=== PATIENT | female | born 1970 | race Caucasian/White ===

== ENCOUNTER 2017-08-12 08:09 | Outpatient (CLI) | payer BC | END 2017-08-12 08:10 | disposition home or self-care (01) | LOC: BICMAMMO 08:09 | PROVIDERS: ATTEND Family Medicine | DX: Z12.31 Encounter for screening mammogram for malignant neoplasm of breast (principal); Z80.3 Family history of malignant neoplasm of breast | CPT/HCPCS: 77063; 77067 ==

== ENCOUNTER 2018-08-14 08:41 | Outpatient (CLI) | payer BC ==
--- NOTE | 2018-08-14 10:17 | MMO ---
Bilateral MAMMO Bilat Screen [facility]. CLINICAL HISTORY: Patient is 48 years old and is seen for screening. The patient has no personal history of cancer. VIEWS: The views performed were: bilateral craniocaudal with tomosynthesis and bilateral mediolateral oblique with tomosynthesis. FILMS COMPARED: The present examination has been compared to prior imaging studies performed at [facility] on 01/20/2014, 05/04/2015, 05/04/2016 and 08/12/2017. MAMMOGRAM FINDINGS: The breasts are almost entirely fat. There are no suspicious masses, suspicious calcifications, or new areas of architectural distortion. IMPRESSION: THERE IS NO MAMMOGRAPHIC EVIDENCE OF MALIGNANCY. A ROUTINE FOLLOW-UP MAMMOGRAM IN 1 YEAR IS RECOMMENDED. THE RESULTS OF THIS EXAM WERE SENT TO THE PATIENT. ACR BI-RADS Category 1 - Negative MAMMOGRAPHY NOTE: 1. A negative mammogram report should not delay a biopsy if a dominant of clinically suspicious mass is present. 2. Approximately 10% to 15% of breast cancers are not detected by mammography. 3. Adenosis and dense breasts may obscure an underlying neoplasm.
== END 2018-08-14 08:42 | disposition home or self-care (01) ==
LOC: BICMAMMO 08:41
PROVIDERS: ATTEND Family Medicine
DX: Z12.31 Encounter for screening mammogram for malignant neoplasm of breast (principal)
CPT/HCPCS: 77063; 77067

== ENCOUNTER 2018-09-08 09:27 | Outpatient (CLI) | payer BC ==
--- NOTE | 2018-09-08 11:49 | RAD ---
Esophagram HISTORY: Dysphagia. Reflux. FINDINGS: There is a lap band at the GE junction in appropriate position. Barium liquid traversed the esophagus and GE junction without significant holdup. No focal mass is ap parent. With patient supine, contrast was seen to extend from the stomach into the mid and distal esophagus. Normal primary and secondary peristalsis. No evidence of obstruction. Fluoroscopy time 0.8. IMPRESSION: Small amount of gastroesophageal reflux. Bariatric lap band in place. No evidence of obstruction.
== END 2018-09-08 09:28 | disposition home or self-care (01) ==
LOC: RAD 09:27
PROVIDERS: ATTEND Surgery
DX: K21.9 Gastro-esophageal reflux disease without esophagitis (principal)
CPT/HCPCS: 74220

== ENCOUNTER 2018-11-28 07:08 | Day surgery (SDC) | payer BC ==
[2018-11-27 11:09] VITALS: BMI 51.7
--- NOTE | 2018-11-28 10:05 | OP ---
DATE OF PROCEDURE: 11/28/2018 COOK MANAGER SURGEON: None. PROCEDURE PERFORMED: Colonoscopy, screening. INDICATION: Colon cancer screening exam. This is the patient's first colonoscopy. She has a family history of colon polyps (father). MEDICATIONS: See Anesthesia record. FINDINGS: After discussion of the risks, benefits, and alternatives of the procedure, informed consent was obtained and witnessed. Pre-endoscopic cardiopulmonary examination was satisfactory. Time-out was performed before sedation was achieved. Sedation was achieved with Anesthesia assistance in the endoscopy unit. Digital rectal exam was performed, which was unremarkable. A Pentax adult colonoscope was inserted into the anus and passed forward to the cecum in the usual fashion. The cecal base was identified by the appendiceal orifice as well as the ileocecal valve. The terminal ileum was intubated and the ileal mucosa appeared normal. The colonoscope was then slowly withdrawn in a gradual and circumferential manner with careful examination of the entire colonic mucosa. The quality of the prep was good. The colonic mucosa appeared normal throughout. There were no polyps or mass lesions visualized. Retroflexion in the rectum was unremarkable. The colonoscope was completely withdrawn and the patient allowed to recover. The patient tolerated the procedure well. There were no immediate postprocedure complications. IMPRESSION: Normal colonoscopy to the terminal ileum. RECOMMENDATION: Repeat colonoscopy for screening in 10 years. Job ID: [id number]
[2018-11-28] MEDS ORDERED: PROPOFOL 200 MG/20 ML VIAL ONE (11:12)
== END 2018-11-28 10:16 | disposition home or self-care (01) ==
LOC: SDC 07:08
PROVIDERS: ATTEND Internal Medicine
PROC: 0DJD8ZZ Inspection of Lower Intestinal Tract, Via Natural or Artificial Opening Endoscopic (ICD-10-PCS; principal; 2018-11-28)
DX: Z12.11 Encounter for screening for malignant neoplasm of colon (principal); I10 Essential (primary) hypertension; E03.9 Hypothyroidism, unspecified; E78.5 Hyperlipidemia, unspecified; F17.200 Nicotine dependence, unspecified, uncomplicated; G47.30 Sleep apnea, unspecified; Z83.71 Family history of colonic polyps; Z99.89 Dependence on other enabling machines and devices
CPT/HCPCS: J2704

== ENCOUNTER 2018-12-16 11:04 | Outpatient (CLI) | payer BC | END 2018-12-16 11:05 | disposition home or self-care (01) | LOC: DTY/OP 11:04 | PROVIDERS: ATTEND Surgery | DX: E66.01 Morbid (severe) obesity due to excess calories (principal) | CPT/HCPCS: 97802 ==

== ENCOUNTER 2019-01-13 15:13 | Outpatient (CLI) | payer BC | END 2019-01-13 15:14 | disposition home or self-care (01) | LOC: DTY/OP 15:13 | PROVIDERS: ATTEND Surgery | DX: E66.01 Morbid (severe) obesity due to excess calories (principal) | CPT/HCPCS: 97802 ==

== ENCOUNTER 2019-12-03 07:55 | Outpatient (CLI) | payer BC, OTHER ==
--- NOTE | 2019-12-03 16:47 | RAD ---
2 VIEW CHEST: Date: 12/03/2019 HISTORY: Preop. FINDINGS: Density in the left lung base along the cardiac border may represent cardiac fat pad, although a foca l mass or density in the left lung base cannot be excluded. Lungs are otherwise clear. Heart and mediastinum appear normal. Osseous structures unremarkable. IMPRESSION: Density in the left lung base adjacent to the cardiac silhouette. Follow-up is recommended. CODE T. POS: JO
[2019-12-03 18:04] LABS: #Eosinphils 0.3 thou/uL (0.0-0.7); #Lymphocytes 1.6 thou/uL (1.20-3.40); #Monocytes 0.4 thou/uL (0.11-0.59); #Neutrophils 4.3 thou/uL (1.40-6.50); %Basophils 0.3 % (0.0-1.0); %Eosinophils 4.4 % (0.0-10.0); %Lymphocytes 24.4 % (21.0-51.0); %Monocytes 5.7 % (0.0-10.0); %Neutrophils 65.2 % (42.0-75.0); Hemoglobin 11.6 g/dL (12.0-16.0); Mean Corpuscular HGB CONC 34.9 g/dL (32.0-36.0); Mean Corpuscular Volume 91.7 fL (78.0-98.0); Mean Platelet Volume 8.2 fL (7.4-10.4); Platelet Count 235 thou/uL (130-400); RBC Distribution Width 13.7 % (11.5-14.5); Red Blood Cell (RBC) Count 3.63 mill/uL (4.20-5.40); White Blood Cell (WBC) Count 6.5 thou/uL (4.8-10.8)
[2019-12-03 18:27] LABS: Hemoglobin A1c 5.8 % (4.0-6.0)
[2019-12-03 19:04] LABS: ALT (SGPT) 26 U/L (8-55); AST (SGOT) 19 U/L (5-34); Albumin 3.8 g/dL (3.5-5.0); Alkaline Phosphatase 48 U/L (40-110); Anion Gap 13 mmol/L (10-20); BUN (Urea Nitrogen) 13 mg/dL (7.0-18.7); Bilirubin, Total 0.3 mg/dL (0.2-1.2); Calc. Creatinine Clearance 0 mL/min (70-130); Calcium 8.4 mg/dL (7.8-10.44); Carbon Dioxide 20 mmol/L (22-29); Chloride 109 mmol/L (98-107); Estimated GFR-MDRD Greater than 90; Globulin 2.7 g/dL (2.4-3.5); Glucose 106 mg/dL (70-105); Potassium 4.3 mmol/L (3.5-5.1); Protein, Total 6.5 g/dL (6.0-8.3); Sodium 138 mmol/L (136-145)
[2019-12-04 12:27] LABS: SARS-CoV-2 MS2 Positive; SARS-CoV-2 N Gene Negative; SARS-CoV-2 S Gene Negative; SARS-CoV-2 by NAA Not Detected (NotDetected); SARS-CoV-2 orf1ab Negative
--- NOTE | 2019-12-06 08:41 | EKG ---
Test Reason : Blood Pressure : / mmHG Vent. Rate : 075 BPM Atrial Rate : 075 BPM P-R Int : 182 ms QRS Dur : 084 ms QT Int : 396 ms P-R-T Axes : 052 064 052 degrees QTc Int : 442 ms Normal sinus rhythm Normal ECG No previous ECGs available Confirmed by DR. Lavell CRABTREE ([id number]) on 12/06/2019 8:41:29 AM Referred By: SARAH Confirmed By:DR. Lavell CRABTREE
== END 2019-12-03 07:56 | disposition home or self-care (01) ==
LOC: LABBT 07:55
PROVIDERS: ATTEND Surgery
DX: Z01.818 Encounter for other preprocedural examination (principal); T85.858A Stenosis due to other internal prosthetic devices, implants and grafts, initial encounter; J98.4 Other disorders of lung; Z20.828 Contact with and (suspected) exposure to other viral communicable diseases
CPT/HCPCS: 71046; 80053; 83036; 85025; 87635; 93005; 93010; U0003

== ENCOUNTER 2019-12-07 07:23 | Day surgery (SDC) | payer BC ==
[2019-12-04 11:01] VITALS: BMI 54.6
[2019-12-07] MEDS ORDERED: Heparin 5,000 UNITS/ML VIAL ONE (08:03)
[2019-12-07] MEDS ORDERED: Bupivacaine/Epinephrine 0.25% 30 ML VIAL ONE (09:09)
[2019-12-07] MEDS ORDERED: Midazolam HCl 2 mg/2 ml Vial ONE (09:18)
[2019-12-07] MEDS ORDERED: Fentanyl 100 MCG/2 ML VIAL ONE (09:18)
[2019-12-07] MEDS ORDERED: SUGAMMADEX SODIUM 200 MG/2 ML VIAL ONE (10:04)
[2019-12-07] MEDS ORDERED: SUGAMMADEX SODIUM 500 MG/5 ML VIAL ONE (10:06)
[2019-12-07] MEDS ORDERED: HYDROcodone/Acetaminophen 5/325 mg Tablet ONE (11:20)
--- NOTE | 2019-12-07 11:54 | OP ---
DATE OF PROCEDURE: 12/07/2019 PREOPERATIVE DIAGNOSIS: Lap band intolerance. PROCEDURE PERFORMED: Laparoscopic removal of lap band and port. INDICATIONS: This is a 49-year-old female who had a lap band many years ago. She initially had some good success and then developed severe reflux, did not tolerate any pills, regained weight. FINDINGS: Intact band. DESCRIPTION OF PROCEDURE: After informed consent was obtained, the patient was taken to the operating room, given general endotracheal anesthesia, placed in the supine position. Abdomen was prepped and draped in the usual fashion. Local anesthesia was infiltrated subcutaneously and deep. A 5-mm incision was performed approximately 8 inches below the xiphoid, slightly to the left. Veress needle inserted. Drop test performed. Pneumoperitoneum was created to a volume of 2 L of carbon dioxide. Utilizing a bladeless 5-mm trocar and 0-degree laparoscope, direct visual entry into the abdominal cavity was performed. Pneumoperitoneum was created to a pressure of 15 mmHg. The patient was placed in steep reverse Trendelenburg position. Jose C liver retractor inserted. Left lobe of the liver retracted superiorly. A 12-mm port was placed where the port was and a 5-mm port placed left lateral. The tubing was found and divided sharply. Then, the tubing was traced down to the buckle. The buckle was dissected out, opened and removed from around the stomach, removed from the abdomen in the left upper quadrant. Hemostasis was assured. The capsule was incised. Hemostasis was assured. Trocars and retractors removed. The skin incision had to be enlarged in the left upper quadrant to remove the port, which was dissected out, then subcu reapproximated with interrupted 3-0 Vicryl. The skin closed with interrupted 4-0 Rapide. Dermabond applied. The patient tolerated the procedure well, transferred to Recovery in good condition. Sponge and needle count verified correct x2. Job ID: [id number]
[2019-12-07] MEDS ORDERED: Lidocaine 1% PF 5 ML VIAL ONE (12:11)
[2019-12-07] MEDS ORDERED: PROPOFOL 200 MG/20 ML VIAL ONE (12:11)
[2019-12-07] MEDS ORDERED: Glycopyrrolate 0.2 MG/ML 5 ML SYRINGE ONE (12:11)
[2019-12-07] MEDS ORDERED: Ketorolac Tromethamine 30 MG/ML VIAL ONE (12:11)
[2019-12-07] MEDS ORDERED: Ondansetron PF 4 MG/2 ML Vial ONE (12:11)
[2019-12-07] MEDS ORDERED: Rocuronium Bromide 10 MG/ML (10ML VIAL) ONE (12:11)
[2019-12-07] MEDS ORDERED: Dexamethasone 20 MG/5 ML VIAL ONE (12:11)
== END 2019-12-07 12:05 | disposition home or self-care (01) ==
LOC: SDC 07:23
PROVIDERS: ATTEND Surgery
PROC: 0WP Anatomical Regions, General, Removal (ICD-10-PCS; principal; 2019-12-07)
DX: K95.09 Other complications of gastric band procedure (principal); E11.9 Type 2 diabetes mellitus without complications; I10 Essential (primary) hypertension; F32.9 Major depressive disorder, single episode, unspecified; E66.9 Obesity, unspecified; Z68.43 Body mass index [BMI] 50.0-59.9, adult; Z79.84 Long term (current) use of oral hypoglycemic drugs; Z79.899 Other long term (current) drug therapy
CPT/HCPCS: 36416; J0690; J1100; J1644; J1885; J2250; J2405; J2704; J3010

== ENCOUNTER 2020-01-05 14:58 | Outpatient (CLI) | payer BC ==
--- NOTE | 2020-01-05 16:30 | MMO ---
Bilateral MAMMO Bilat Screen [facility]. CLINICAL HISTORY: Patient is 49 years old and is seen for screening. The patient has no personal history of cancer. VIEWS: The views performed were: bilateral craniocaudal with tomosynthesis; bilateral mediolateral oblique; and bilateral mediolateral oblique with tomosynthesis. FILMS COMPARED: The present examination has been compared to prior imaging studies performed at [facility] on 05/04/2015, 05/04/2016, 08/12/2017 and 08/14/2018. This study has been interpreted with the assistance of computer-aided detection. MAMMOGRAM FINDINGS: The breasts are almost entirely fat. There are stable benign appearing calcifications seen in both breasts. There are no suspicious masses, suspicious calcifications, or new areas of architectural distortion. IMPRESSION: THERE IS NO MAMMOGRAPHIC EVIDENCE OF MALIGNANCY. A ROUTINE FOLLOW-UP MAMMOGRAM IN 1 YEAR IS RECOMMENDED. THE RESULTS OF THIS EXAM WERE SENT TO THE PATIENT. ACR BI-RADS Category 2 - Benign finding MAMMOGRAPHY NOTE: 1. A negative mammogram report should not delay a biopsy if a dominant of clinically suspicious mass is present. 2. Approximately 10% to 15% of breast cancers are not detected by mammography. 3. Adenosis and dense breasts may obscure an underlying neoplasm. Reported by: ZAHRAA SAMAYOA MD Electonically Signed: [id number]
== END 2020-01-05 14:59 | disposition home or self-care (01) ==
LOC: BICMAMMO 14:58
PROVIDERS: ATTEND Family Medicine
DX: Z12.31 Encounter for screening mammogram for malignant neoplasm of breast (principal)
CPT/HCPCS: 77063; 77067

== ENCOUNTER 2020-08-10 09:17 | Outpatient (CLI) | payer BC | END 2020-08-10 09:18 | disposition home or self-care (01) | LOC: DTY/OP 09:17 | PROVIDERS: ATTEND Family Medicine | DX: E66.01 Morbid (severe) obesity due to excess calories (principal); Z68.43 Body mass index [BMI] 50.0-59.9, adult | CPT/HCPCS: 97802 ==

== ENCOUNTER 2020-12-19 12:43 | Inpatient (IN) | payer BC ==
[2020-12-23 13:16] VITALS: BMI 54.0
[2020-12-26] MEDS ORDERED: Lidocaine 1% w/Epinephrine 1:100K 20 ML VIAL ONE (08:27)
[2020-12-26] MEDS ORDERED: Bupivacaine 0.25% HCL 30 ML VIAL ONE (08:27)
[2020-12-26] MEDS ORDERED: ceFAZolin 2 GM/DEX 5% 100 ML BAG ONE (08:33)
[2020-12-26] MEDS ORDERED: Midazolam HCl 2 mg/2 ml Vial ONE ×2 (09:01→09:07)
[2020-12-26] MEDS ORDERED: Fentanyl 100 MCG/2 ML VIAL ONE (09:07)
[2020-12-26] MEDS ORDERED: HYDROmorphone 2 MG/ML VIAL ONE (09:07)
[2020-12-26] MEDS ORDERED: Rocuronium Bromide 10 MG/ML (10ML VIAL) ONE (09:27)
[2020-12-26] MEDS ORDERED: PROPOFOL 200 MG/20 ML VIAL ONE (09:27)
[2020-12-26] MEDS ORDERED: Ondansetron PF 4 MG/2 ML Vial ONE (09:27)
[2020-12-26] MEDS ORDERED: Dexamethasone 20 MG/5 ML VIAL ONE (09:27)
[2020-12-26] MEDS ORDERED: ePHEDrine 50 MG/ML VIAL ONE (09:27)
[2020-12-26] MEDS ORDERED: PHENYLEPHRINE-NS 100 MCG/ML 10 ML SYRINGE ONE (09:27)
[2020-12-26] MEDS ORDERED: Lidocaine 1% PF 5 ML VIAL ONE (09:27)
[2020-12-26] MEDS ORDERED: HumaLOG 300 UNITS/3 ML VIAL SC PRN (10:55)
[2020-12-26] MEDS ORDERED: diphenhydrAMINE 50 MG/ML VIAL IVP PRN (10:55)
[2020-12-26] MEDS ORDERED: Ondansetron PF 4 MG/2 ML Vial IVP PRN ×2 (10:55→15:00)
[2020-12-26] MEDS ORDERED: Promethazine HCl 25 MG/ML VIAL IM PRN ×2 (10:55→15:00)
[2020-12-26] MEDS ORDERED: Dextrose 50% Abboject 50 ML SYRINGE SLOW IVP PRN (10:55)
[2020-12-26] MEDS ORDERED: hydrALAZINE 20 MG/ML VIAL SLOW IVP PRN (10:55)
[2020-12-26] MEDS ORDERED: Hydrocodone-Acetamin 15 ML UDCUP PO PRN (10:55)
[2020-12-26] MEDS ORDERED: Dextrose 5% in Water 1,000 ML IV PRN (10:55)
[2020-12-26] MEDS: Ketorolac Tromethamine 30 MG/ML VIAL IVP SCH ×3 (13:03→23:50)
[2020-12-26] MEDS ORDERED: diphenhydrAMINE 25 MG CAP PO PRN (15:00)
[2020-12-26] MEDS ORDERED: Fentanyl CADD 100 ML IVPB SCH (15:00)
[2020-12-26] MEDS ORDERED: Naloxone HCl 0.4 mg/ml Vial IV PRN (15:00)
[2020-12-26] MEDS ORDERED: diphenhydrAMINE 50 MG/ML VIAL IM/IV PRN (15:00)
[2020-12-26] MEDS ORDERED: Zolpidem Tartrate 5 MG TAB PO PRN (15:00)
[2020-12-26] MEDS: CEFAZOLIN SODIUM IVPB SCH ×2 (15:33→23:51)
[2020-12-26] MEDS: ADMIXTURE FEE IVPB SCH ×2 (15:33→23:51)
[2020-12-26] MEDS: D5W IVPB SCH ×2 (15:33→23:51)
[2020-12-26] MEDS: 1/2 NS w/KCL 20 mEq 1,000 ML IV SCH ×2 (15:35→23:50)
[2020-12-26] MEDS ORDERED: CEFAZOLIN 2 GM in Premix Bag 1 BAG IVPB SCH (16:00)
[2020-12-27] MEDS: 1/2 NS w/KCL 20 mEq 1,000 ML IV SCH (03:44)
[2020-12-27] MEDS: Ketorolac Tromethamine 30 MG/ML VIAL IVP SCH ×2 (05:45→11:51)
[2020-12-27] MEDS ORDERED: Hydrocodone-Acetamin 15 ML UDCUP PO PRN (06:14)
[2020-12-27 06:49] LABS: #Lymphocytes 0.8 thou/uL (1.20-3.40); #Monocytes 0.2 thou/uL (0.11-0.59); #Neutrophils 6.4 thou/uL (1.40-6.50); %Eosinophils 0.1 % (0.0-10.0); %Lymphocytes 10.9 % (21.0-51.0); %Monocytes 2.7 % (0.0-10.0); %Neutrophils 86.3 % (42.0-75.0); Hemoglobin 11.6 g/dL (12.0-16.0); Mean Corpuscular HGB CONC 34.1 g/dL (32.0-36.0); Mean Corpuscular Hemoglobin 32.4 pg (27.0-31.0); Mean Platelet Volume 8.1 fL (7.4-10.4); Platelet Count 254 thou/uL (130-400); RBC Distribution Width 12.2 % (11.5-14.5); Red Blood Cell (RBC) Count 3.57 mill/uL (4.20-5.40); White Blood Cell (WBC) Count 7.4 thou/uL (4.8-10.8)
[2020-12-27 07:05] LABS: Anion Gap 14 mmol/L (10-20); BUN (Urea Nitrogen) 10 mg/dL (9.8-20.1); Calc. Creatinine Clearance 208 mL/min (70-130); Carbon Dioxide 22 mmol/L (22-29); Chloride 105 mmol/L (98-107); Glucose 125 mg/dL (70-105); Potassium 4.6 mmol/L (3.5-5.1); Sodium 136 mmol/L (136-145)
[2020-12-27] MEDS ORDERED: Pantoprazole 40 MG VIAL IVP SCH (09:00)
[2020-12-27] MEDS ORDERED: Enoxaparin Sodium 40 MG/0.4 ML SYRINGE SC SCH (09:00)
[2020-12-27 11:52] VITALS: BP 145/71; TEMP 98.3
== END 2020-12-27 12:47 | disposition home or self-care (01) | DRG 621 ==
LOC: EDSTATUS 12:43 → SURG A 12-26 06:59
PROVIDERS: ADMIT Surgery; ATTEND Surgery
PROC: 0DB64Z3 Excision of Stomach, Percutaneous Endoscopic Approach, Vertical (ICD-10-PCS; principal; 2020-12-26)
PROC: 0DJ08ZZ Inspection of Upper Intestinal Tract, Via Natural or Artificial Opening Endoscopic (ICD-10-PCS; 2020-12-26)
DX: E66.01 Morbid (severe) obesity due to excess calories (principal); Z68.43 Body mass index [BMI] 50.0-59.9, adult; F32.A Depression, unspecified; E11.9 Type 2 diabetes mellitus without complications; I10 Essential (primary) hypertension; E55.9 Vitamin D deficiency, unspecified; Z82.49 Family history of ischemic heart disease and other diseases of the circulatory system; Z79.899 Other long term (current) drug therapy; Z79.890 Hormone replacement therapy
CPT/HCPCS: 36415; 36416; 80048; 85025; 88307; 94760; C9113; J1100; J1170; J1650; J1885; J2250; J2405; J2704; J3010; J3480; J3490; S0020

== ENCOUNTER 2020-12-21 16:19 | Outpatient (CLI) | payer BC ==
[2020-12-21 17:12] LABS: #Eosinphils 0.2 10x3/uL (0.0-0.5); #Monocytes 0.4 10x3/uL (0.0-1.1); #Neutrophils 4.6 10x3/uL (1.5-8.4); %Basophils 0.3 % (0.0-2.0); %Eosinophils 3.5 % (0.0-6.0); %Lymphocytes 19.9 % (18.0-47.0); %Monocytes 6.6 % (0.0-10.0); %Neutrophils 69.2 % (40.0-75.0); Hemoglobin 12.2 g/dL (12.0-15.5); Mean Corpuscular HGB CONC 33.1 g/dL (32.0-36.0); Mean Corpuscular Hemoglobin 31.1 pg (27.0-33.0); Mean Corpuscular Volume 94.1 fl (81.6-98.3); Platelet Count 299 10x3/uL (150-450); RBC Distribution Width 13.3 % (11.5-14.5); Red Blood Cell (RBC) Count 3.92 10x6/uL (3.90-5.03); White Blood Cell (WBC) Count 6.6 10x3/uL (3.5-10.5)
[2020-12-21 17:23] LABS: ALT (SGPT) 40 U/L (8-55); AST (SGOT) 31 U/L (5-34); Albumin 4.5 g/dL (3.5-5.0); Alkaline Phosphatase 37 U/L (40-110); Anion Gap 14 mmol/L (10-20); BUN (Urea Nitrogen) 14 mg/dL (9.8-20.1); Bilirubin, Total 0.5 mg/dL (0.2-1.2); Calc. Creatinine Clearance 0 mL/min (70-130); Calcium 9.7 mg/dL (7.8-10.44); Carbon Dioxide 21 mmol/L (22-29); Chloride 108 mmol/L (98-107); Globulin 2.5 g/dL (2.4-3.5); Glucose 103 mg/dL (70-105); Sodium 139 mmol/L (136-145)
[2020-12-21 20:34] LABS: Hemoglobin A1c 6.2 % (4.0-6.0)
[2020-12-21 23:51] LABS: SARS-CoV-2 PCR by NAA Not Detected (NotDetected)
== END 2020-12-21 16:20 | disposition home or self-care (01) ==
LOC: LABBT 16:19
PROVIDERS: ATTEND Surgery
DX: Z01.818 Encounter for other preprocedural examination (principal); E66.01 Morbid (severe) obesity due to excess calories; Z20.822 Contact with and (suspected) exposure to COVID-19
CPT/HCPCS: 71046; 80053; 83036; 85025; 93005; 93010; U0003; U0005

== ENCOUNTER 2021-08-01 08:59 | Outpatient (CLI) | payer BC | END 2021-08-01 09:00 | disposition home or self-care (01) | LOC: BICMAMMO 08:59 | PROVIDERS: ATTEND Family Medicine | DX: Z12.31 Encounter for screening mammogram for malignant neoplasm of breast (principal) | CPT/HCPCS: 77063; 77067 ==

== ENCOUNTER 2022-09-07 07:46 | Outpatient (CLI) | payer BC | END 2022-09-07 07:47 | disposition home or self-care (01) | LOC: BICMAMMO 07:46 | PROVIDERS: ATTEND Family Medicine | DX: Z12.31 Encounter for screening mammogram for malignant neoplasm of breast (principal) | CPT/HCPCS: 77063; 77067 ==